=== PATIENT | female | born 1970 | race Caucasian/White ===

== ENCOUNTER 2017-09-10 07:23 | Emergency (ER) | payer OTHER ==
[2017-09-10 07:40] VITALS: TEMP 97.8; BMI 35.6
[2017-09-10] MEDS ORDERED: SODIUM CHLORIDE 1,000 ML IV STA (07:41)
[2017-09-10] MEDS ORDERED: METOCLOPRAMIDE HCL INJECTION 10 MG/2 ML VIAL IVPUSH ONE (07:41)
[2017-09-10] MEDS ORDERED: METOCLOPRAMIDE HCL INJECTION 10 MG/2 ML VIAL ONE (07:46)
--- NOTE | 2017-09-10 07:50 | PDOC ---
History of Present Illness - General Chief Complaint: Migraine Headache Stated Complaint: HEADACHE Time Seen by Provider: 09/10/17 07:33 - History of Present Illness Initial Comments: 09/10/17 07:44 Ms. Dozier is a 47 yo woman w/ pmh of migraines and kidney stones who presents complaining of a several day history of migraine. She reports that this first started on and has been more or less constant since. She presented to her neurologist yesterday who gave her an injection which alleviated the pain somewhat, but the pain returned again last night. Ms. Dozier took 2 aleve at around 5am this morning but this has not helped her symptoms at all. The patient denies chest pain, shortness of breath, and dizziness. Denies fever , chills, nausea, vomit, diarrhea and constipation. Denies dysuria, frequency, urgency and hematuria. Allergies: NKDA Past History - Past Medical History Allergies/Adverse Reactions: Allergies Allergy/AdvReac Type Severity Reaction Status Date / Time No Known Allergies Allergy Verified 09/10/17 07:27 Home Medications: Ambulatory Orders Naproxen [Naprosyn] 500 mg PO BID PRN #20 tablet 07/13/13 No Home Medications 0 dose .ROUTE UTDICT 07/13/13 Ondansetron [Zofran *Odt*] 8 mg SL TID PRN #14 od.tablet 07/13/13 Oxycodone HCl/Acetaminophen [Percocet 5-325 mg Tablet] 1 - 2 combo PO Q4H PRN # 20 tablet 07/13/13 Tamsulosin HCl 0.4 mg PO DAILY #7 cap.er.24h 07/13/13 COPD: No HTN: Yes Other medical history: Migrane Headaches - Surgical History Appendectomy: Yes - Suicide/Smoking/Psychosocial Hx Smoking History: Never smoked Review of Systems - Review of Systems Comments:: 09/10/17 07:47 GENERAL/CONSTITUTIONAL: No fever or chills. No weakness. HEAD, EYES, EARS, NOSE AND THROAT: No change in vision. No ear pain or discharge. No sore throat. CARDIOVASCULAR: No chest pain or shortness of breath RESPIRATORY: No cough, wheezing, or hemoptysis. GASTROINTESTINAL: No nausea, vomiting, diarrhea or constipation. GENITOURINARY: No dysuria, frequency, or change in urination. MUSCULOSKELETAL: No joint or muscle swelling or pain. No neck or back pain. SKIN: No rash NEUROLOGIC: +Headache as described. No vertigo, loss of consciousness, or change in strength/sensation. ENDOCRINE: No increased thirst. No abnormal weight change HEMATOLOGIC/LYMPHATIC: No anemia, easy bleeding, or history of blood clots. ALLERGIC/IMMUNOLOGIC: No hives or skin allergy. *Physical Exam - Vital Signs Last Vital Signs Temp Pulse Resp BP Pulse Ox 97.8 F 72 16 141/104 100 09/10/17 07:28 09/10/17 07:28 09/10/17 07:28 09/10/17 07:28 09/10/17 07:28 - Physical Exam Comments: 09/10/17 07:50 GENERAL: Awake, alert, and fully oriented, in no acute distress HEAD: No signs of trauma, normocephalic, atraumatic EYES: PERRLA, EOMI, sclera anicteric, conjunctiva clear ENT: Auricles normal inspection, hearing grossly normal, nares patent, oropharynx clear without exudates. Moist mucosa NECK: Normal ROM, supple, no lymphadenopathy, JVD, or masses LUNGS: No distress, speaks full sentences, clear to auscultation bilaterally HEART: Regular rate and rhythm, normal S1 and S2, no murmurs, rubs or gallops, peripheral pulses normal and equal bilaterally. ABDOMEN: Soft, nontender, normoactive bowel sounds. No guarding, no rebound. No masses EXTREMITIES: Normal inspection, Normal range of motion, no edema. No clubbing or cyanosis. NEUROLOGICAL: Cranial nerves II through XII grossly intact. Normal speech, normal gait, no focal sensorimotor deficits SKIN: Warm, Dry, normal turgor, no rashes or lesions noted. ED Treatment Course - LABORATORY CBC & Chemistry Diagram: 09/10/17 08:01 09/10/17 08:00 Medical Decision Making - Medical Decision Making 09/10/17 08:27 Ms. Dozier is a 47 yo female w/ pmh as described who presents for evaluation of migraine oscar. 1L NS + reglan + benadryl + toradol ordered for symptomatic relief. 09/10/17 08:53 Dexamethosone given for additional symptomatic relief. Labs wnl as below. Patient reporting some relief from symptoms. Discussed patient with Dr. Alfonso (Partner of Dr. Mujica) who will provide further instruction regarding patient. 09/10/17 10:01 Dr. Alfonso to bedside for evaluation. Lidocaine nerve block injections administered for relief from pain. Patient reporting generalized relief from headache symptoms and will follow-up at her scheduled appointment next week . Discharging to home. *DC/Admit/Observation/Transfer Diagnosis at time of Disposition: Migraine Qualifiers: Migraine type: unspecified Status migrainosus presence: without status migrainosus Intractability: not intractable Qualified Code(s): G43.909 - Migraine, unspecified, not intractable, without status migrainosus - Discharge Dispostion Disposition: HOME - Referrals - Patient Instructions Printed Discharge Instructions: DI for Migraine Additional Instructions: Please follow-up with Neurology for further migraine treatment as discussed. Please return if you experience any further pain not controllable w/ home medications, fever, chills, altered mental status, or any other concerning symptoms. - Post Discharge Activity
[2017-09-10 08:11] LABS: BASO % 0.6 % (0-2.0); EOS % 2.9 % (0-4.5); HEMATOCRIT 39.8 % (32.4-45.2); HEMOGLOBIN 13.2 GM/dL (10.7-15.3); LYMPH % 32.2 % (8-40); MCH 26.8 pg (25.7-33.7); MCHC 33.2 g/dl (32.0-36.0); MEAN CELL VOLUME 80.8 fl (80-96); MEAN PLT VOLUME 8.4 fl (7.5-11.1); MONO % 7.3 % (3.8-10.2); PLATELET COUNT 239 K/MM3 (134-434); RBC 4.93 M/mm3 (3.60-5.2); RDW 15.6 % (11.6-15.6); WHITE BLOOD COUNT 7.2 K/mm3 (4.0-10.0)
[2017-09-10] MEDS ORDERED: KETOROLAC TROMETHAMINE 30 MG/1 ML VIAL IVPUSH ONE (08:19)
[2017-09-10] MEDS ORDERED: KETOROLAC TROMETHAMINE 30 MG/1 ML VIAL ONE (08:21)
[2017-09-10 08:37] LABS: HCG,QUALITATIVE URINE Negative; URINE APPEARANCE CLEAR; URINE BILIRUBIN NEGATIVE (<2.0 mg/dL); URINE BLOOD NEGATIVE (NEGATIVE); URINE COLOR STRAW; URINE GLUCOSE (UA) NEGATIVE (NEGATIVE); URINE KETONE NEGATIVE (NEGATIVE); URINE LEUK ESTERASE NEGATIVE (NEGATIVE); URINE NITRITE NEGATIVE (NEGATIVE); URINE PROTEIN NEGATIVE (NEGATIVE); URINE UROBILINOGEN NEGATIVE mg/dL (0.2-1.0)
[2017-09-10] MEDS ORDERED: DEXAMETHASONE SOD PHOSPHATE 10 MG/1 ML VIAL IVPUSH ONE (08:41)
[2017-09-10 08:44] LABS: ALBUMIN 3.5 g/dl (3.4-5.0); ALK PHOS 73 U/L (45-117); ANION GAP 8 (8-16); BILIRUBIN,TOTAL 0.4 mg/dL (0.2-1.0); BLOOD UREA NITROGEN 15 mg/dL (7-18); CALCIUM 8.8 mg/dL (8.5-10.1); CHLORIDE 102 mmol/L (98-107); CO2 29 mmol/L (21-32); CREATININE 0.7 mg/dL (0.55-1.02); GLUCOSE,RANDOM 89 mg/dL (74-106); POTASSIUM 4.1 mmol/L (3.5-5.1); SGOT/AST 18 U/L (15-37); SGPT/ALT 24 U/L (12-78); SODIUM 139 mmol/L (136-145); TOT PROT 7.1 g/dl (6.4-8.2)
[2017-09-10] MEDS ORDERED: DEXAMETHASONE SOD PHOSPHATE 10 MG/1 ML VIAL ONE (08:49)
--- NOTE | 2017-09-10 09:11 | PDOC ---
Attending Attestation - Resident Resident Name: Walker Ruiz - ED Attending Attestation I have performed the following: I have examined & evaluated the patient, The case was reviewed & discussed with the resident, I agree w/resident's findings & plan - HPI HPI: 09/10/17 09:09 47-year-old female with history of migraines presents with recurring/ intractable migraine for 4 days. Patient had her typical onset migraine 4 days ago, was treating with sumatriptan at home without relief, was seen in Dr. Mujica's office yesterday and received an injection with some relief, but her headache recurred starting at 10 PM last night so she presents here for evaluation. No red flags, no history of injury or fevers or neck stiffness or nausea/ vomiting. - Physicial Exam PE: 09/10/17 09:10 Vital signs within normal limits, slightly elevated blood pressure In slight discomfort secondary to her headache No meningismus or photophobia, pupils are equal round and reactive Neurological exam is nonfocal No rash - Medical Decision Making 09/10/17 09:10 Patient seen and evaluated with the resident. I agree with the overall evaluation, assessment, and management with the following summary of visit: 47-year-old female with intractable migraine for 4 days, no other red flags on history or physical exam. Treated here with IV fluids, Reglan, Toradol with marked improvement in her symptoms labs and urine are completely normal Plan for discharge, discussed with Dr. Alfonso, covering Dr. Mujica, who will contact us again with discharge plan 09/10/17 10:35 significantly improved after meds. Seen by Dr. Alfonso and nerve block performed with further improvement, appears to have tolerated well. Plan is for d/c and continue neuro f/u. understands return criteria.
[2017-09-10] MEDS ORDERED: LIDOCAINE HCL 2% (50ML VIAL) SQ ONE (10:08)
[2017-09-10] MEDS ORDERED: LIDOCAINE HCL 2% (20ML MULTI-DOSE VIAL) NR ONE (10:09)
--- NOTE | 2017-09-10 10:36 | CON.NEURO ---
Consult Consult Specialty:: Neurology Referred by:: ER Reason for Consultation:: Status Migraine - History of Present Illness Chief Complaint: Migraine headache for 5 days History of Present Illness: Patient with chronic migraine for many years, now doing better on Botox treated by my associate Reg Mujica, last seen for Botox one month ago, seen yesterday for 4 days of headache and received ketorolac in deltoid, now comes back with same headache. 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) - Smoking History Smoking history: Never smoked Home Medications - Allergies Allergies/Adverse Reactions: Allergies Allergy/AdvReac Type Severity Reaction Status Date / Time No Known Allergies Allergy Verified 09/10/17 07:27 - Home Medications Home Medications: Ambulatory Orders Naproxen [Naprosyn] 500 mg PO BID PRN #20 tablet 07/13/13 No Home Medications 0 dose .ROUTE UTDICT 07/13/13 Ondansetron [Zofran *Odt*] 8 mg SL TID PRN #14 od.tablet 07/13/13 Oxycodone HCl/Acetaminophen [Percocet 5-325 mg Tablet] 1 - 2 combo PO Q4H PRN # 20 tablet 07/13/13 Tamsulosin HCl 0.4 mg PO DAILY #7 cap.er.24h 07/13/13 Physical Exam-Neuro Vital Signs: Vital Signs Temperature 97.8 F 09/10/17 07:28 Pulse Rate 72 09/10/17 07:28 Respiratory Rate 16 09/10/17 07:28 Blood Pressure 141/104 09/10/17 07:28 O2 Sat by Pulse Oximetry (%) 100 09/10/17 07:28 Labs: CBC, BMP 09/10/17 08:01 09/10/17 08:00 - Neuro Exam Level Of Consciousness: Yes: Alert, Oriented to Person, Oriented to Place, Oriented to Time Eyes: Yes: FARZANEH Speech: WNL Cranial Nerves II-XII Intact: Yes DTR's: 2+ Left Bicep, 2+ Right Bicep, 2+ Left Tricep, 2+ Right Tricep, 2+ Left Brachioradialis, 2+ Right Brachioradialis, 2+ Left Achilles, 2+ Right Achilles Response to light touch: Normal Motor Strength: 5/5: Left Arm, Right Arm, Left Leg, Right Leg Gait: Normal Problem List - Problems (1) Chronic migraine without aura with status migrainosus, not intractable Code(s): G43.701 - CHRONIC MIGRAINE W/O AURA, NOT INTRACTABLE, W STAT MIGR Assessment/Plan Having headaches for 5 days and failing to respond to conservative measures, and still with 8/10 pain, though better, I have offered the patient peripheral nerve blocks. Informed consent obtained. 2 % lidocaine used. 3 cc injected around the area of each greater occipital nerve 2 cc injected around the area of each lesser occipital nerve 1 cc injected around the area of each zygomatico temporal nerve 1 cc injected around the area of each supratrochlear nerve 1 cc injected around the area of each supraorbital nerve. She achieved adequate anesthesia and good analgesia. She felt much better and tolerated the procedures well. I would suggest that she be given a dose of decadron 4 mg for tomorrow as you have given her 10 mg today. THank you.
[2017-09-10 11:01] VITALS: BP 146/93; PULSE 69
== END 2017-09-10 11:01 | disposition home or self-care (01) ==
LOC: JER 07:23
PROC: 3E0333Z Introduction of Anti-inflammatory into Peripheral Vein, Percutaneous Approach (ICD-10-PCS; principal; 2017-09-10)
PROC: 3E0333Z Introduction of Anti-inflammatory into Peripheral Vein, Percutaneous Approach (ICD-10-PCS; 2017-09-10)
PROC: 3E033GC Introduction of Other Therapeutic Substance into Peripheral Vein, Percutaneous Approach (ICD-10-PCS; 2017-09-10)
PROC: 3E033GC Introduction of Other Therapeutic Substance into Peripheral Vein, Percutaneous Approach (ICD-10-PCS; 2017-09-10)
PROC: 3E033GC Introduction of Other Therapeutic Substance into Peripheral Vein, Percutaneous Approach (ICD-10-PCS; 2017-09-10)
PROC: 3E033GC Introduction of Other Therapeutic Substance into Peripheral Vein, Percutaneous Approach (ICD-10-PCS; 2017-09-10)
PROC: 3E0333Z Introduction of Anti-inflammatory into Peripheral Vein, Percutaneous Approach (ICD-10-PCS; 2017-09-10)
PROC: 3E0333Z Introduction of Anti-inflammatory into Peripheral Vein, Percutaneous Approach (ICD-10-PCS; 2017-09-10)
PROC: 3E0X3BZ Introduction of Anesthetic Agent into Cranial Nerves, Percutaneous Approach (ICD-10-PCS; 2017-09-10)
DX: G43.701 Chronic migraine without aura, not intractable, with status migrainosus (principal)
CPT/HCPCS: 36415; 80053; 81003; 84703; 85025; 96372; 96374; 96375; 99282-25; J1100; J7030

== ENCOUNTER 2018-08-04 06:16 | Emergency (ER) | payer OTHER ==
[2018-08-04 07:18] VITALS: BP 136/90; PULSE 70; TEMP 98.1; BMI 34.9
[2018-08-04] MEDS ORDERED: SODIUM CHLORIDE 1,000 ML IV STA (08:02)
[2018-08-04] MEDS ORDERED: KETOROLAC TROMETHAMINE 30 MG/1 ML VIAL IVPUSH ONE (08:02)
[2018-08-04] MEDS ORDERED: METOCLOPRAMIDE HCL INJECTION 10 MG/2 ML VIAL IVPB ONE (08:02)
--- NOTE | 2018-08-04 08:02 | PDOC ---
History of Present Illness - General History Source: Patient - History of Present Illness Severity: Yes: severe <Ankita Howe - Last Filed: 08/04/18 12:38> <Aby Kaufman - Last Filed: 08/04/18 15:18> - General Chief Complaint: Headache Stated Complaint: HEADACHE Time Seen by Provider: 08/04/18 07:48 Past History - Past Medical History COPD: No HTN: Yes Other medical history: migraine - Surgical History Appendectomy: Yes - Immunization History Immunization Up to Date: No - Suicide/Smoking/Psychosocial Hx Smoking History: Never smoked Have you smoked in the past 12 months: No Information on smoking cessation initiated: No Hx Alcohol Use: No Drug/Substance Use Hx: No <Ankita Howe - Last Filed: 08/04/18 12:38> <Aby Kaufman - Last Filed: 08/04/18 15:18> - Past Medical History Allergies/Adverse Reactions: Allergies Allergy/AdvReac Type Severity Reaction Status Date / Time No Known Allergies Allergy Verified 09/10/17 07:27 Home Medications: Ambulatory Orders Methylprednisolone [Medrol Dose Bryant] 4 mg PO ASDIR #21 tablet 08/04/18 Sumatriptan Succinate [Imitrex -] 0 mg PO PRN 08/04/18 Review of Systems - Review of Systems Constitutional: No: Chills, Fever HEENTM: No: Blurred Vision Neurological: Yes: Headache. No: Numbness, Tingling, Weakness, Dizziness <Ankita Howe - Last Filed: 08/04/18 12:38> *Physical Exam - Vital Signs Last Vital Signs Temp Pulse Resp BP Pulse Ox 98.1 F 70 16 136/90 100 08/04/18 07:16 08/04/18 07:16 08/04/18 07:16 08/04/18 07:16 08/04/18 07:16 - Physical Exam General Appearance: Yes: Appropriately Dressed, Moderate Distress HEENT: positive: Normal Voice Neck: positive: Supple Respiratory/Chest: negative: Respiratory Distress Neurologic: positive: price changer II-XII NML intact, Fully Oriented, Alert, Normal Mood/ Affect, Motor Strength 5/5 <Ankita Howe - Last Filed: 08/04/18 12:38> - Vital Signs Last Vital Signs Temp Pulse Resp BP Pulse Ox 98.1 F 70 16 136/90 100 08/04/18 07:16 08/04/18 07:16 08/04/18 07:16 08/04/18 07:16 08/04/18 07:16 <Aby Kaufman - Last Filed: 08/04/18 15:18> Moderate Sedation - Procedure Monitoring Vital Signs: Procedure Monitoring Vital Signs Temperature 98.1 F 08/04/18 07:16 Pulse Rate 70 08/04/18 07:16 Respiratory Rate 16 08/04/18 07:16 Blood Pressure 136/90 08/04/18 07:16 O2 Sat by Pulse Oximetry (%) 100 08/04/18 07:16 <Ankita Howe - Last Filed: 08/04/18 12:38> - Procedure Monitoring Vital Signs: Procedure Monitoring Vital Signs Temperature 98.1 F 08/04/18 07:16 Pulse Rate 70 08/04/18 07:16 Respiratory Rate 16 08/04/18 07:16 Blood Pressure 136/90 08/04/18 07:16 O2 Sat by Pulse Oximetry (%) 100 08/04/18 07:16 <Aby Kaufman - Last Filed: 08/04/18 15:18> ED Treatment Course - Medications Given in the ED: ED Medications Discontinued Medications Generic Name Dose Route Start Last Admin Trade Name Andres PRN Reason Stop Dose Admin Acetaminophen/Butalbital/Caffeine 1 tablet 08/04/18 11:02 08/04/18 11:25 Fioricet - PO 08/04/18 11:03 1 tablet ONCE ONE Administration Dexamethasone Sodium Phosphate 2 mg 08/04/18 11:01 08/04/18 11:25 Decadron Injection - IVPUSH 08/04/18 11:02 2 mg ONCE ONE Administration Sodium Chloride 1,000 mls @ 1,000 mls/hr 08/04/18 08:02 08/04/18 08:35 Normal Saline - IV 08/04/18 09:01 1,000 mls/hr ASDIR STA Administration Ketorolac Tromethamine 30 mg 08/04/18 08:02 08/04/18 08:35 Toradol Injection - IVPUSH 08/04/18 08:03 30 mg ONCE ONE Administration Metoclopramide HCl 10 mg 08/04/18 08:02 08/04/18 08:35 Reglan Injection - IVPB 08/04/18 08:03 10 mg ONCE ONE Administration <KaufmanAby - Last Filed: 08/04/18 15:18> Medical Decision Making - Medical Decision Making 08/04/18 08:00 48 yo F, h/o HTN, chronic migraines, here with usual headache. Patient reports right-sided headache that started 3 days ago, sharp, 10 out of 10 and constant, typical of her usual headache. No blurry vision, nausea, vomiting or dizziness. Patient states she is currently taking sumatriptan 50 mg, but that meds is not relieving her CLAROS. Last seen by her neurologist (Dr Mujica) 4 months ago. Patient reports that she also gets botox every 3 months which does relieve her headache, but that when headache does return, usually within the 3 months, it is usually worse "and I have to come to the ER" per pt. S/p botox ~ 3 months ago. States she had neg MRI/CT in past. No sensory deficit or focal weakness See exam Acute on chronic CLAROS H/o migraines Neg neuroimaging in past On sumatriptan w/ no relief S/p botox ~3 months ago No new sxs Neuro exam intact -pain control in ED and reassess 08/04/18 08:43 08/04/18 09:34 Pt continues to report headache with no improvement with reglan, toradol or fluids. Will discuss with patient's neurologist, Dr. Mujica 08/04/18 11:06 Case d/w Dr Mujica who recommends dose of 2mg decadron and that pt should go home w/ medrol dose pack and follow up with MD today 08/04/18 12:48 Pt reports mild improvement at this time. States she was able to call Dr. Mujica while here and made appointment for 3pm today. Stable for discharge <Ankita Howe - Last Filed: 08/04/18 12:38> *DC/Admit/Observation/Transfer <Ankita Howe Last Filed: 08/04/18 12:38> - Attestations Physician Attestion: I reviewed the case with the mid-level practitioner and agree with the mid- level practitioner's assessment, diagnosis and disposition. <Aby Kaufman - Last Filed: 08/04/18 15:18> Diagnosis at time of Disposition: Migraine Qualifiers: Migraine type: unspecified Status migrainosus presence: with status migrainosus Intractability: intractable Qualified Code(s): G43.911 - Migraine, unspecified, intractable, with status migrainosus - Discharge Dispostion Disposition: HOME Condition at time of disposition: Improved - Prescriptions Prescriptions: Methylprednisolone [Medrol Dose Bryant] 4 mg PO ASDIR #21 tablet - Referrals Referrals: Deondre Espinoza MD [Primary Care Provider] - - Patient Instructions Printed Discharge Instructions: Migraine -- Adult Additional Instructions: Take medications as prescribed and follow up with Dr. Mujica today - Post Discharge Activity
[2018-08-04] MEDS ORDERED: METOCLOPRAMIDE HCL INJECTION 10 MG/2 ML VIAL ONE (08:24)
[2018-08-04] MEDS ORDERED: KETOROLAC TROMETHAMINE 30 MG/1 ML VIAL ONE (08:24)
[2018-08-04] MEDS ORDERED: DEXAMETHASONE SOD PHOSPHATE 4 MG/1 ML VIAL IVPUSH ONE (11:01)
[2018-08-04] MEDS ORDERED: ACETAMINOPHEN/CAFFEINE/BUTALBITAL 1 TAB PO ONE (11:02)
[2018-08-04] MEDS ORDERED: ACETAMINOPHEN/CAFFEINE/BUTALBITAL 1 TAB ONE (11:21)
[2018-08-04] MEDS ORDERED: DEXAMETHASONE SOD PHOSPHATE 4 MG/1 ML VIAL ONE (11:22)
== END 2018-08-04 12:45 | disposition home or self-care (01) ==
LOC: JER 06:16
PROC: 3E0337Z Introduction of Electrolytic and Water Balance Substance into Peripheral Vein, Percutaneous Approach (ICD-10-PCS; principal; 2018-08-04)
PROC: 3E0333Z Introduction of Anti-inflammatory into Peripheral Vein, Percutaneous Approach (ICD-10-PCS; 2018-08-04)
PROC: 3E0333Z Introduction of Anti-inflammatory into Peripheral Vein, Percutaneous Approach (ICD-10-PCS; 2018-08-04)
PROC: 3E033GC Introduction of Other Therapeutic Substance into Peripheral Vein, Percutaneous Approach (ICD-10-PCS; 2018-08-04)
DX: G43.911 Migraine, unspecified, intractable, with status migrainosus (principal); I10 Essential (primary) hypertension
CPT/HCPCS: 96361; 96374; 96375; 99281-25; J7030

== ENCOUNTER 2019-03-17 07:55 | Emergency (ER) | payer OTHER ==
[2019-03-17 08:02] VITALS: TEMP 98.1; BMI 29.6
[2019-03-17] MEDS ORDERED: KETOROLAC TROMETHAMINE 30 MG/1 ML VIAL IVPUSH ONE (08:35)
[2019-03-17] MEDS ORDERED: SODIUM CHLORIDE 1,000 ML IV STA (08:35)
--- NOTE | 2019-03-17 08:40 | PDOC ---
History of Present Illness - General History Source: Patient, Family - History of Present Illness Timing/Duration: reports: constant, getting worse Quality: reports: severe Abdominal Pain Onset Location: reports: other (lower abd) <Ankita Howe - Last Filed: 03/17/19 13:04> <William Benitez - Last Filed: 03/24/19 16:51> - General Chief Complaint: Pain, Acute Stated Complaint: LOWER ABD PAIN Time Seen by Provider: 03/17/19 08:29 Past History - Past Medical History COPD: No HTN: Yes Thyroid Disease: No Lung CA: No - Surgical History Appendectomy: Yes Cholecystectomy: No - Immunization History Immunization Up to Date: No - Psycho Social/Smoking Cessation Hx Smoking History: Never smoked Have you smoked in the past 12 months: No Information on smoking cessation initiated: No Hx Alcohol Use: No Drug/Substance Use Hx: No <Ankita Howe - Last Filed: 03/17/19 13:04> <William Benitez - Last Filed: 03/24/19 16:51> - Past Medical History Allergies/Adverse Reactions: Allergies Allergy/AdvReac Type Severity Reaction Status Date / Time No Known Allergies Allergy Verified 09/10/17 07:27 Home Medications: Ambulatory Orders Methylprednisolone [Medrol Dose Bryant] 4 mg PO ASDIR #21 tablet 08/04/18 Sumatriptan Succinate [Imitrex -] 0 mg PO PRN 08/04/18 Ibuprofen [Motrin -] 800 mg PO Q6H #30 tablet 03/17/19 Nitrofurantoin Monohyd/M-Cryst [Macrobid -] 100 mg PO BID #14 capsule 03/17/19 Review of Systems - Review of Systems Constitutional: No: Chills, Fever ABD/GI: No: Blood Streaked Bowels, Constipated, Diarrhea, Nausea, Rectal Bleeding, Vomiting, Tarry Stools : No: Dysuria, Flank Pain, Hematuria <Ankita Howe - Last Filed: 03/17/19 13:04> *Physical Exam - Vital Signs Last Vital Signs Temp Pulse Resp BP Pulse Ox 98.1 F 73 18 148/95 99 03/17/19 08:00 03/17/19 08:00 03/17/19 08:00 03/17/19 08:00 03/17/19 08:00 - Physical Exam General Appearance: Yes: Appropriately Dressed, Moderate Distress HEENT: positive: Normal Voice Neck: positive: Supple Respiratory/Chest: negative: Respiratory Distress Gastrointestinal/Abdominal: positive: Normal Bowel Sounds, Tender (sig ttp to lower abd diffusely), Soft. negative: Pulsatile Mass, Distended, Guarding, Rebound Musculoskeletal: negative: CVA Tenderness Integumentary: positive: Dry, Warm Neurologic: positive: Fully Oriented, Alert, Normal Mood/Affect <Ankita Howe - Last Filed: 03/17/19 13:04> - Vital Signs Last Vital Signs Temp Pulse Resp BP Pulse Ox 98.1 F 66 20 137/88 100 03/17/19 08:00 03/17/19 13:20 03/17/19 13:20 03/17/19 13:20 03/17/19 13:20 <William Benitez - Last Filed: 03/24/19 16:51> ED Treatment Course - LABORATORY CBC & Chemistry Diagram: 03/17/19 08:55 03/17/19 08:55 - RADIOLOGY Radiology Studies Ordered: Category Date Time Status ABDOMEN & PELVIS CT WITH CONTR [CT] Stat CT Scan 03/17/19 08:34 Ordered <Ankita Howe - Last Filed: 03/17/19 13:04> - LABORATORY CBC & Chemistry Diagram: 03/17/19 08:55 03/17/19 08:55 - ADDITIONAL ORDERS Additional order review: 03/17/19 08:55 Urine Culture - Final Urine - Urine Clean Catch NO GROWTH OBTAINED 03/17/19 08:55 RBC 5.07 MCV 81.1 MCHC 32.1 RDW 16.1 H MPV 8.7 Neutrophils % 58.2 Lymphocytes % 31.0 Monocytes % 7.4 Eosinophils % 2.7 Basophils % 0.7 - Medications Given in the ED: ED Medications Discontinued Medications Generic Name Dose Route Start Last Admin Trade Name Freq PRN Reason Stop Dose Admin Sodium Chloride 1,000 mls @ 1,000 mls/hr 03/17/19 08:35 03/17/19 08:50 Normal Saline - IV 03/17/19 09:34 1,000 mls/hr ASDIR STA Administration Ketorolac Tromethamine 30 mg 03/17/19 08:35 03/17/19 08:50 Toradol Injection - IVPUSH 03/17/19 08:36 30 mg ONCE ONE Administration Morphine Sulfate 2 mg 03/17/19 10:43 03/17/19 11:15 Morphine Injection - IVPUSH 03/17/19 10:44 2 mg ONCE ONE Administration Ondansetron HCl 4 mg 03/17/19 10:44 03/17/19 11:15 Zofran Injection IVPUSH 03/17/19 10:45 4 mg ONCE ONE Administration <William Benitez - Last Filed: 03/24/19 16:51> Medical Decision Making - Medical Decision Making 03/17/19 08:37 49 yo F, h/o HTN, s/p appy and liposuction remotely, renal stones, here with severe lower abdominal pain that started this a.m. Has since been getting worse. Denies any nausea, vomiting, acute change in bowel movements, dysuria, hematuria, fever or chills. No history of similar pain see exam R/o diverticulitis vs SBO vs renal colic vs UTI -pain control -labs/ua -CT -dispo pending 03/17/19 11:[address] read as fibroids and R ovarian cyst but no acute pathology. Patient continues to complain of mostly pelvic pain at this point. Though low suspicion for torsion, will get ultrasound given degree of pain 03/17/19 13:04 US re-demonstrates fibroids and R ovarian cyst but no evidence of torsion. Given >900 bacteria on UA and patient now reporting possible urinary frequency, will dc with antibiotics and pain control. No flank pain, n/v or fever to suspect pyelo at this time. Patient to follow-up with LITERACY SPECIALIST this week regarding fibroids and ovarian cyst ass discussed. <Ankita Howe - Last Filed: 03/17/19 13:04> - Medical Decision Making 03/24/19 16:49 I reviewed the case of the mid-level practitioner and was available for consultation while in the emergency department <William Benitez - Last Filed: 03/24/19 16:51> Discharge - Discharge Information Problems reviewed: Yes <Ankita Howe - Last Filed: 03/17/19 13:04> <William Benitez - Last Filed: 03/24/19 16:51> - Discharge Information Clinical Impression/Diagnosis: Lower abdominal pain Condition: Improved Disposition: HOME - Additional Discharge Information Prescriptions: Ibuprofen [Motrin -] 800 mg PO Q6H #30 tablet Nitrofurantoin Monohyd/M-Cryst [Macrobid -] 100 mg PO BID #14 capsule - Follow up/Referral Referrals: Deondre Espinoza MD [Primary Care Provider] - - Patient Discharge Instructions Patient Printed Discharge Instructions: DI for Uterine Fibroids Additional Instructions: Given the bacteria in your urine we have started you on antibiotics. Take meds and Motrin as directed Please follow-up with your LITERACY SPECIALIST this week regarding multiple fibroids and right ovarian cyst on your ultrasound - Post Discharge Activity
[2019-03-17] MEDS ORDERED: KETOROLAC TROMETHAMINE 30 MG/1 ML VIAL ONE (08:41)
[2019-03-17 09:09] LABS: BASO % 0.7 % (0-2.0); EOS % 2.7 % (0-4.5); HEMATOCRIT 41.1 % (32.4-45.2); HEMOGLOBIN 13.2 GM/dL (10.7-15.3); MCH 26.1 pg (25.7-33.7); MCHC 32.1 g/dl (32.0-36.0); MEAN CELL VOLUME 81.1 fl (80-96); MEAN PLT VOLUME 8.7 fl (7.5-11.1); MONO % 7.4 % (3.8-10.2); NEUT % 58.2 % (42.8-82.8); PLATELET COUNT 257 K/MM3 (134-434); RBC 5.07 M/mm3 (3.60-5.2); RDW 16.1 % (11.6-15.6); WHITE BLOOD COUNT 7.6 K/mm3 (4.0-10.0)
[2019-03-17 09:14] LABS: EPI CELLS 12.5 /HPF (0-5/HPF); HYALINE CASTS 20 /lpf (0-8); URINE APPEARANCE CLOUDY; URINE BACTERIA 944.5 /hpf (NEGATIVE); URINE BILIRUBIN NEGATIVE (NEGATIVE); URINE COLOR YELLOW; URINE GLUCOSE (UA) NEGATIVE (NEGATIVE); URINE KETONE NEGATIVE (NEGATIVE); URINE LEUK ESTERASE 1+ (NEGATIVE); URINE NITRITE NEGATIVE (NEGATIVE); URINE PROTEIN NEGATIVE (NEGATIVE); URINE RBC 1 /hpf (0-4); URINE WBC 15 /hpf (0-5)
[2019-03-17 09:33] LABS: ALBUMIN 3.4 g/dl (3.4-5.0); BILIRUBIN,TOTAL 0.3 mg/dL (0.2-1); BLOOD UREA NITROGEN 14.4 mg/dL (7-18); CALCIUM 8.8 mg/dL (8.5-10.1); CREATININE 0.9 mg/dL (0.55-1.3); POTASSIUM 4.6 mmol/L (3.5-5.1); TOT PROT 7.1 g/dl (6.4-8.2)
[2019-03-17] MEDS ORDERED: morphine CARPU-JECT 4 MG/1 ML DISP.SYRIN IVPUSH ONE (10:43)
[2019-03-17] MEDS ORDERED: ONDANSETRON 4 MG/2 ML VIAL IVPUSH ONE (10:44)
[2019-03-17] MEDS ORDERED: ONDANSETRON 4 MG/2 ML VIAL ONE (11:15)
[2019-03-17] MEDS ORDERED: MORPHINE SULFATE 2 MG/ML VIAL ONE (11:15)
[2019-03-17 13:40] VITALS: BP 137/88; PULSE 66
== END 2019-03-17 13:25 | disposition home or self-care (01) ==
LOC: JER 07:55
PROC: 3E033NZ Introduction of Analgesics, Hypnotics, Sedatives into Peripheral Vein, Percutaneous Approach (ICD-10-PCS; principal; 2019-03-17)
PROC: 3E0333Z Introduction of Anti-inflammatory into Peripheral Vein, Percutaneous Approach (ICD-10-PCS; 2019-03-17)
PROC: 3E033GC Introduction of Other Therapeutic Substance into Peripheral Vein, Percutaneous Approach (ICD-10-PCS; 2019-03-17)
DX: R10.30 Lower abdominal pain, unspecified (principal); I10 Essential (primary) hypertension; D25.9 Leiomyoma of uterus, unspecified; N83.201 Unspecified ovarian cyst, right side; Z87.442 Personal history of urinary calculi
CPT/HCPCS: 36415; 74177-TC; 76830-TC; 76856-TC; 80053; 81003; 83690; 84703; 85025; 87086; 96374; 96375; 99283-25; J7030; Q9967